=== PATIENT | female | born 1990 | race Caucasian/White ===

== ENCOUNTER 2018-02-15 13:33 | Observation (INO) | payer MEDICAID ==
[~2018-02-15] VITALS: Ht 157.5 cm; Wt 62.1 kg
== END 2018-02-15 16:00 | disposition home or self-care (01) ==
LOC: L&D 13:33
PROVIDERS: ADMIT Obstetrics & Gynecology; ATTEND Obstetrics & Gynecology
DX: O36.8130 Decreased fetal movements, third trimester, not applicable or unspecified (principal); Z3A.39 39 weeks gestation of pregnancy
CPT/HCPCS: 76815; 76818; G0378; 99281

== ENCOUNTER 2018-02-16 22:36 | Inpatient (IN) | payer MEDICAID, OTHER ==
[~2018-02-16] VITALS: Ht 154.9 cm; Wt 62.1 kg
[2018-02-16] MEDS ORDERED: DEXT 5%/LR + PITOCIN 20UNITS/L 1,000 ML IV SCH (23:04)
[2018-02-16] MEDS ORDERED: LIDOCAINE HCL 1% 20ML VIAL (Pyxis) INJ INFIL SCH (23:15)
[2018-02-16] MEDS ORDERED: NALOXONE HCL 0.4 MG/ML 1ML VIAL IM PRN (23:15)
[2018-02-16] MEDS ORDERED: METHYLERGONOVINE MALEATE 0.2 MG/ML IM PRN (23:15)
[2018-02-16] MEDS ORDERED: BUTORPHANOL TARTRATE 2 MG/ML VIAL IV PRN (23:15)
[2018-02-16] MEDS ORDERED: MISOPROSTOL 100MCG TABLET VG SCH (23:15)
[2018-02-16] MEDS ORDERED: CARBOPROST TROMETHAMINE 250 MCG/ML AMPUL IM PRN (23:15)
[2018-02-17 00:03] LABS: CLARITY URINE CLEAR (CLEAR); COLOR URINE YELLOW (YELLOW); KETONES URINE NEGATIVE (NEGATIVE); LEUKOCYTE ESTERASE URINE 1+ (NEGATIVE); NITRITE URINE NEGATIVE (NEGATIVE); OCCULT BLOOD URINE 2+ (NEGATIVE); PROTEIN URINE NEGATIVE (NEGATIVE); SPECIFIC GRAVITY URINE 1.009 (1.005-1.030); UROBILINOGEN URINE 0.2 E.U./dL (0.2-1.0)
[2018-02-17 00:15] LABS: INR 3.4; PARTIAL THROMBOPLASTIN TIME 60.4 sec (23.4-31.0); PROTHROMBIN TIME 33.1 sec (9.1-11.1)
[2018-02-17 00:17] LABS: *AMPHETAMINES SCREEN URINE NEGATIVE (NEGATIVE); *BARBITURATES SCREEN URINE NEGATIVE (NEGATIVE); *BENZODIAZEPINES SCREEN URINE NEGATIVE (NEGATIVE); CANNABINOID URINE SCREEN NEGATIVE (NEGATIVE); METHADONE URINE SCREEN NEGATIVE (NEGATIVE); OPIATES URINE SCREEN NEGATIVE (NEGATIVE); PHENCYCLIDINE URINE SCREEN NEGATIVE (NEGATIVE)
[2018-02-17 00:18] LABS: *COCAINE SCREEN URINE NEGATIVE (NEGATIVE)
[2018-02-17] MEDS: LACTATED RINGERS 1,000 ML IV SCH ×2 (00:26→00:57)
[2018-02-17 00:49] LABS: HEPATITIS B SURFACE ANTIGEN NEGATIVE
[2018-02-17] MEDS ORDERED: BENZOCAINE/LANOLIN/ALOE VERA SPRAY TOP PRN (02:15)
[2018-02-17] MEDS ORDERED: BISACODYL 10MG SUPP PR PRN (02:15)
[2018-02-17] MEDS ORDERED: GLYCERIN/WITCH HAZEL LEAF MEDICATED PAD TOP PRN (02:15)
[2018-02-17] MEDS ORDERED: ACETAMINOPHEN WITH CODEINE 300/30MG TABLET PO PRN (02:15)
[2018-02-17] MEDS ORDERED: IBUPROFEN 400MG TABLET PO PRN (02:15)
[2018-02-17] MEDS ORDERED: DEXT 5%/LR + PITOCIN 20UNITS/L 1,000 ML IV SCH (03:00)
[2018-02-17 04:00] VITALS: BP 120/57
[2018-02-17] MEDS: ACETAMINOPHEN WITH CODEINE 300/30MG TABLET PO PRN ×2 (05:26→19:47)
[2018-02-17 06:00] VITALS: BP 115/59
[2018-02-17 07:30] VITALS: BP 96/59
[2018-02-17] MEDS: SIMETHICONE 80MG TABLET CHEW PO SCH ×2 (17:00→21:13)
[2018-02-17 17:05] VITALS: BP 102/52
[2018-02-17 20:10] VITALS: BP 120/75
[2018-02-17] MEDS ORDERED: DOCUSATE SODIUM 100MG CAPSULE PO SCH (21:00)
[2018-02-17] MEDS: MAGNESIUM/ALUMINUM HYDROXIDE/SIMETHICONE 30ML UDC PO SCH (21:12)
[2018-02-18 04:10] VITALS: BP 109/59
[2018-02-18 07:14] LABS: BASOPHILS % 0.2 % (0.0-2.0); EOSINOPHILS % 1.3 % (0.0-5.0); HEMATOCRIT. 30.7 % (36.0-48.0); HEMOGLOBIN. 10.4 g/dL (12.0-16.0); LYMPHOCYTES % 26.2 % (20.0-50.0); MEAN CORPUSCULAR HEMOGLOBIN 29.6 pg (28.0-32.0); MEAN CORPUSCULAR VOLUME 87.3 fL (81.0-99.0); MEAN PLATELET VOLUME 8.9 fl (7.4-10.4); MONOCYTES % 9.6 % (2.0-8.0); NEUTROPHILS % 62.7 % (40.0-76.0); PLATELET 161 x1000/uL (130-400); RED BLOOD CELL COUNT 3.52 mill/uL (4.2-5.4); RED CELL DISTRIBUTION WIDTH 15.3 % (11.6-14.6)
[2018-02-18 08:55] VITALS: BP 112/50
[2018-02-18] MEDS: SIMETHICONE 80MG TABLET CHEW PO SCH (09:00)
[2018-02-18] MEDS: MAGNESIUM/ALUMINUM HYDROXIDE/SIMETHICONE 30ML UDC PO SCH (09:00)
== END 2018-02-18 12:00 | disposition home or self-care (01) | DRG 560 ==
LOC: OBSVTOIN 22:36 → L&D 22:36 → 7EST PP/OB 02-17 03:51
PROVIDERS: ADMIT Obstetrics & Gynecology; ATTEND Obstetrics & Gynecology
PROC: 10E0XZZ Delivery of Products of Conception, External Approach (ICD-10-PCS; principal; 2018-02-17 03:00)
DX: O69.81X0 Labor and delivery complicated by cord around neck, without compression, not applicable or unspecified (principal); O48.0 Post-term pregnancy; Z37.0 Single live birth; Z3A.00 Weeks of gestation of pregnancy not specified
CPT/HCPCS: 36415; 80305; 86592; 86703; 86762; 86850; 86900; 87340; 99281; J0595; J2590; J3490; J7120